=== PATIENT | female | born 1990 | race Caucasian/White ===

== ENCOUNTER 2021-11-13 07:42 | Inpatient (IN) | payer BC ==
[~2021-11-13] VITALS: Ht 154.9 cm; Wt 81.6 kg
[2021-11-13] MEDS: TERBUTALINE SULFATE 1MG/ML VIAL SUBCUT PRN ×3 (07:23→08:58)
[2021-11-13] MEDS ORDERED: NALOXONE HCL 0.4 MG/ML 1ML VIAL IM PRN (07:45)
[2021-11-13] MEDS ORDERED: LACTATED RINGERS 1,000 ML IV SCH (07:45)
[2021-11-13] MEDS ORDERED: OXYTOCIN 30 UNITS/500ML NS PMX 500 ML IV SCH (07:45)
[2021-11-13] MEDS ORDERED: CARBOPROST TROMETHAMINE 250 MCG/ML AMPUL IM PRN (07:45)
[2021-11-13] MEDS ORDERED: METHYLERGONOVINE MALEATE 0.2 MG/ML IM PRN (07:45)
[2021-11-13] MEDS ORDERED: PROPOFOL 200MG/20ML VIAL IV ONE (07:48)
[2021-11-13] MEDS ORDERED: OXYTOCIN 10 UNITS/ML 1ML ONE ×2 (07:49→08:33)
[2021-11-13] MEDS ORDERED: MORPHINE SULFATE/PF 1MG/ML 10ML AMP ONE (07:49)
[2021-11-13] MEDS ORDERED: FENTANYL CITRATE/PF 50MCG/ML 2ML VIAL ONE (07:49)
[2021-11-13] MEDS ORDERED: CEFAZOLIN SODIUM 1000MG/VIAL ONE (07:50)
[2021-11-13] MEDS ORDERED: BUPIVACAINE HCL/DEXTROSE/PF 0.75% 2ML AMP INJ ONE (08:02)
[2021-11-13] MEDS ORDERED: PHENYLEPHRINE HCL 10 MG/ML 1ML (IV VIAL) IV ONE (08:03)
[2021-11-13 08:18] LABS: BASOPHILS % 0.3 % (0.0-2.0); EOSINOPHILS % 0.1 % (0.0-5.0); HEMATOCRIT. 38.9 % (36.0-48.0); LYMPHOCYTES % 14.1 % (20.0-50.0); MEAN CORPUSCULAR HEMOGLOBIN 29.8 pg (28.0-32.0); MEAN CORPUSCULAR VOLUME 89.2 fL (81.0-99.0); MEAN PLATELET VOLUME 7.9 fl (7.4-10.4); MONOCYTES % 4.5 % (2.0-8.0); PLATELET 245 x1000/uL (130-400); RED BLOOD CELL COUNT 4.36 mill/uL (4.2-5.4)
[2021-11-13] MEDS ORDERED: ONDANSETRON HCL 4MG/2ML INJ ONE (08:21)
[2021-11-13] MEDS ORDERED: DIPHENHYDRAMINE 50MG/ML VIAL ONE (08:26)
[2021-11-13 08:27] LABS: INR 0.9; PARTIAL THROMBOPLASTIN TIME 25.2 sec (23.4-31.0); PROTHROMBIN TIME 9.5 sec (9.6-11.0)
[2021-11-13] MEDS ORDERED: KETOROLAC 60MG/2ML VIAL IM ONE (08:35)
[2021-11-13 08:37] LABS: CHLORIDE 107 mEq/L (98-107)
[2021-11-13] MEDS ORDERED: BUTORPHANOL TARTRATE 2 MG/ML VIAL IV PRN (08:45)
[2021-11-13] MEDS ORDERED: NALOXONE HCL 0.4 MG/ML 1ML VIAL IV PRN (08:45)
[2021-11-13] MEDS ORDERED: DIPHENHYDRAMINE 50MG/ML VIAL IV PRN (08:45)
[2021-11-13] MEDS ORDERED: DIPHENHYDRAMINE 25MG CAPSULE PO PRN (09:30)
[2021-11-13] MEDS ORDERED: BISACODYL 10MG SUPP PR PRN (09:30)
[2021-11-13] MEDS ORDERED: OXYCODONE HCL/ACETAMINOPHEN 5/325MG TABLET PO PRN (09:30)
[2021-11-13] MEDS ORDERED: HYDROMORPHONE HCL/PF 2MG/ML CPJ IM PRN (09:30)
[2021-11-13] MEDS ORDERED: RHO(D) IMMUNE GLOBULIN 300 MCG/SYR IM PRN (09:30)
[2021-11-13] MEDS ORDERED: IBUPROFEN 400MG TABLET PO PRN (09:30)
[2021-11-13] MEDS ORDERED: NALOXONE HCL 0.4MG/ML VIAL IV PRN (09:45)
[2021-11-13 11:30] VITALS: BP 101/50
[2021-11-13 12:00] VITALS: BP 99/50
[2021-11-13 13:00] VITALS: BP 100/49
[2021-11-13 13:49] LABS: HEPATITIS B SURFACE ANTIGEN NEGATIVE
[2021-11-13] MEDS: KETOROLAC 30MG/ML VIAL IV SCH ×2 (15:06→23:50)
[2021-11-13 20:00] VITALS: BP 104/41
[2021-11-13] MEDS ORDERED: KETOROLAC 30MG/ML VIAL IV SCH (23:30)
[2021-11-14] VITALS: BP 103/60
[2021-11-14 04:00] VITALS: BP 103/62
[2021-11-14 06:39] LABS: BASOPHILS % 0.2 % (0.0-2.0); EOSINOPHILS % 0.2 % (0.0-5.0); HEMATOCRIT. 30.2 % (36.0-48.0); HEMOGLOBIN. 10.5 g/dL (12.0-16.0); LYMPHOCYTES % 11.2 % (20.0-50.0); MEAN CORPUSCULAR HEMOGLOBIN 31.2 pg (28.0-32.0); MEAN CORPUSCULAR VOLUME 89.7 fL (81.0-99.0); MEAN PLATELET VOLUME 8.1 fl (7.4-10.4); MONOCYTES % 5.2 % (2.0-8.0); NEUTROPHILS % 83.2 % (40.0-76.0); PLATELET 189 x1000/uL (130-400); RED BLOOD CELL COUNT 3.37 mill/uL (4.2-5.4); RED CELL DISTRIBUTION WIDTH 14.2 % (11.6-14.6)
[2021-11-14 07:40] VITALS: BP 98/60
[2021-11-14] MEDS: IBUPROFEN 800MG TABLET PO PRN ×3 (08:31→22:18)
[2021-11-14] MEDS: FERROUS SULFATE 325MG TABLET PO SCH ×2 (08:31→16:16)
[2021-11-14] MEDS: PRENATAL VIT/FE FUMARATE/FA TABLET PO SCH (08:31)
[2021-11-14 16:00] VITALS: BP 104/73
[2021-11-14 20:00] VITALS: BP 109/66
[2021-11-15 04:00] VITALS: BP 101/57
[2021-11-15] MEDS: IBUPROFEN 800MG TABLET PO PRN ×2 (04:21→10:24)
[2021-11-15 07:45] VITALS: BP 121/77
[2021-11-15] MEDS: PRENATAL VIT/FE FUMARATE/FA TABLET PO SCH (10:24)
[2021-11-15] MEDS: FERROUS SULFATE 325MG TABLET PO SCH (10:24)
[2021-11-15] MEDS ORDERED: IBUP-2030 MT (14:33)
== END 2021-11-15 15:00 | disposition home or self-care (01) | DRG 786 ==
LOC: OBSVTOIN 07:42 → 8 EST LDRP 07:42 → 8EST 11:45
PROVIDERS: ADMIT Obstetrics & Gynecology; ATTEND Obstetrics & Gynecology
PROC: 10D00Z1 Extraction of Products of Conception, Low, Open Approach (ICD-10-PCS; principal; 2021-11-13)
DX: O32.8XX0 Maternal care for other malpresentation of fetus, not applicable or unspecified (principal); O60.14X0 Preterm labor third trimester with preterm delivery third trimester, not applicable or unspecified; D62 Acute posthemorrhagic anemia; Z37.0 Single live birth; Z3A.35 35 weeks gestation of pregnancy; Z20.822 Contact with and (suspected) exposure to COVID-19; O90.81 Anemia of the puerperium
CPT/HCPCS: 36415; 76815; 80053; 85025; 86592; 86703; 86762; 86850; 86900; 86920; 87340; 87426; 88307; 99281; J0690; J1200; J1885; J2274; J2370; J2405; J2704; J3010; J3490; J2590